=== PATIENT | female | born 1930 | race Caucasian/White ===

== ENCOUNTER 2018-03-24 09:51 | Emergency (ER) | payer MEDICARE, OTHER ==
[~2018-03-24] VITALS: Ht 152.4 cm; Wt 70.0 kg
[~2018-03-24 09:51] MED LIST: ADVA250A INH; ALBU0.086 INH; BACT2OIN TOP; CEPH500T PO; MELO15 PO; OXYB5TAB33 PO; PRED-1 PO; Z.0.OXYGEN INH; ZOLP5TAB3 PO
[2018-03-24 09:57] VITALS: BP 115/54; PULSE 95; RESP 20; TEMP 98.1; O2SAT 86
[2018-03-24 10:30] VITALS: BP 109/60; PULSE 88; RESP 16; O2SAT 89
[2018-03-24] MEDS ORDERED: PRED1 PO (10:30)
[2018-03-24] MEDS ORDERED: FURO1TAB62 PO (10:30)
[2018-03-24] MEDS ORDERED: OXYB5TAB8 PO (10:30)
[2018-03-24] MEDS ORDERED: UMEC1AER INH (10:30)
[2018-03-24] MEDS ORDERED: [UNRECOGNIZED DRUG - OTHER] NAS.CANULA (10:30)
--- NOTE | 2018-03-24 11:03 | PD ---
HPI Chief Complaint: Lump, Cyst, Hernia Time Seen by Provider: 11:01 Travel History International Travel<30 days: No Contact w/Intl Traveler<30days: No Traveled to known affect area: No History of Present Illness HPI Patient comes into the emergency department for breast lump on her left breast. It started after she tried to "pop" a pimple on her chest last . This is approximately 4-5 days ago and since then the lump has grown both in the redness as well as the size of it. Patient rates it at approximately 5 out of 10, not spontaneously draining much, denied any fever, nausea, vomiting. No alleviating or aggravating factors. Patient also denies associated factors such as chest pain, headache, visual changes, any other rashes throughout her body, neck pain, back pain, abdominal pain, diarrhea, runny nose sore throat or cough. States allergy to Tylenol causes itchiness Past medical history significant for cataract surgery, tonsillectomy, hypercholesterolemia, COPD, GERD, arthritis, bilateral knee replacements, depression, anxiety, previous shingles episode several years ago PFSH Past Medical History Arthritis: Yes Asthma: No Blood Disorders: No Anxiety: Yes Depression: Yes Cancer: Yes (SKIN) Cardiovascular Problems: No High Cholesterol: Yes COPD: Yes Diabetes: No Diminished Hearing: No Endocrine: No Gastrointestinal Disorders: Yes Glaucoma: No Genitourinary: Yes Hiatal Hernia: No Hypertension: No Immune Disorder: No Musculoskeletal: Yes Neurologic: No Reproductive: No Respiratory: Yes (copd, uses oxygen at home states at night) Thyroid Disease: No Tetanus Vaccination: Unknown Influenza Vaccination: No ?: Not Past Surgical History Abdominal Surgery: No Cardiac Surgery: No Eye Surgery: Yes (CATARACT SX ) Genitourinary Surgery: No Joint Replacement: Yes (BILATERAL KNEE REPLACEMENTS) Pacemaker: No Thoracic Surgery: No Tonsillectomy: Yes Other Surgery: Yes Social History Alcohol Use: No (QUIT ) Tobacco Use: Yes (STOPPED 1985) Substance Use: No Allergies-Medications (Allergen,Severity, Reaction): Coded Allergies: acetaminophen (Unverified Allergy, Severe, Itching, 03/24/18) Reported Meds & Prescriptions Reported Meds & Active Scripts Active Reported Anoro Ellipta Inh (Umeclidinium/Vilanterol) 62.5-25 Mcg/Act Aero 1 Puff INH DAILY Ditropan (Oxybutynin Chloride) 5 Mg Tab 5 Mg PO Q12HR Prednisone 1 Mg Tab 2 Mg PO DAILY [miscellaneous ] 2 Liter SUSY.CANULA DIRECTED Lasix (Furosemide) 20 Mg Tab 20 Mg PO BID Review of Systems General / Constitutional: No: Fever Eyes: No: Visual changes HENT: No: Headaches Cardiovascular: No: Chest Pain or Discomfort Respiratory: No: Shortness of Breath Gastrointestinal: No: Abdominal Pain Genitourinary: No: Dysuria Musculoskeletal: No: Pain Skin: Positive Rash, Positive Lumps Neurologic: No: Weakness Psychiatric: No: Depression Endocrine: No: Polydipsia Hematologic/Lymphatic: No: Easy Bruising Physical Exam Narrative GENERAL: SKIN: Warm and dry. Patient has erythema extending throughout most of her left breast however she has an area of fluctuance and induration is approximately 10 x 4 cm in size(please see EDUARDO's I&D procedure note for more details) HEAD: Atraumatic. Normocephalic. EYES: Pupils equal and round. No scleral icterus. No injection or drainage. ENT: No nasal bleeding or discharge. Mucous membranes pink and moist. NECK: Trachea midline. No JVD. CARDIOVASCULAR: Regular rate and rhythm. RESPIRATORY: No accessory muscle use. Clear to auscultation. Breath sounds equal bilaterally. GASTROINTESTINAL: Abdomen soft, non-tender, nondistended. MUSCULOSKELETAL: Extremities without clubbing, cyanosis, or edema. No obvious deformities. NEUROLOGICAL: Awake and alert. No obvious cranial nerve deficits. Motor grossly within normal limits. Five out of 5 muscle strength in the arms and legs. Normal speech. PSYCHIATRIC: Appropriate mood and affect; insight and judgment normal. Data Data Last Documented VS Vital Signs Date Time Temp Pulse Resp B/P (MAP) Pulse Ox O2 Delivery O2 Flow Rate FiO2 03/24/18 10:22 90 18 03/24/18 09:57 98.1 115/54 (74) 86 Orders Orders Lidocai-Epi 1%-1:100,000 Inj (Xylocaine- (03/24/18 11:30) Wound Culture And Gram Stain (03/24/18 11:38) Tramadol (Ultram) (03/24/18 11:45) Clindamycin Inj (Cleocin Inj) (03/24/18 12:00) MDM Medical Decision Making Medical Screen Exam Complete: Yes Emergency Medical Condition: Yes Medical Record Reviewed: Yes Differential Diagnosis Cellulitis versus lymphangitis versus abscess versus mastitis Narrative Course Please see the EDUARDO note for further information about the incision and drainage procedure. Patient will be given IM antibiotics Patient has been advised to follow-up with primary care for further evaluation after it heals to ensure that she does not have any type of atypical breast cancer or other malignancy present. Both the family members and the patient acknowledged that they will follow-up In the meantime the patient was advised that she will be given p.o. antibiotics as well as pain medication which do not contain Tylenol such as Ultram to help her with her pain control while the antibiotics continue to work. Culture sent and awaiting results Diagnosis Primary Impression: Breast abscess status post incision and drainage Patient Instructions: Abscess Incision and Drainage (DC), General Instructions Additional Instructions: You are highly recommended to follow-up with your primary care physician for further imaging to assess for the possibility of breast cancer. This is not simply on incision and drainage and then forget about it, your advised to follow -up and make sure he did not have breast cancer such as an inflammatory type. Scripts Sulfamethoxazole-Trimethoprim (Bactrim DS) 800-160 Mg Tab 1 TAB PO BID for Infection, #20 TAB 0 Refills Prov: Sumit Dean MD 03/24/[address] (Naproxen EC) 375 Mg Tabdr 375 MG PO BID, #12 TAB 0 Refills Prov: Sumit Dean MD 03/24/18 Tramadol (Ultram) 50 Mg Tab 50 MG PO Q6H Y for PAIN for 3 Days, #12 TAB 0 Refills Prov: Sumit Dean MD 03/24/18 Disposition: 01 DISCHARGE HOME Condition: Stable Sumit Dean MD Mar 24, 2018 11:03
[2018-03-24] MEDS ORDERED: LIDOCAINE 1%/EPINEPHrine 1:100,000 SOLN 20 ML VIAL INFIL ONE (11:30)
--- NOTE | 2018-03-24 11:39 | PD ---
Physical Exam Date Seen by Provider: Mar 24, 2018 Time Seen by Provider: 11:38 Narrative I was asked by Dr. Dean to incise and drain abscess to the patient's left medial breast. Please see his documentation for full history and physical. Data Data Last Documented VS Vital Signs Date Time Temp Pulse Resp B/P (MAP) Pulse Ox O2 Delivery O2 Flow Rate FiO2 03/24/18 10:22 90 18 03/24/18 09:57 98.1 115/54 (74) 86 Orders Orders Lidocai-Epi 1%-1:100,000 Inj (Xylocaine- (03/24/18 11:30) Wound Culture And Gram Stain (03/24/18 11:38) MDM Supervised Visit with EDUARDO: No Procedures Procedure Narrative INCISION AND DRAINAGE OF ABSCESS: The area was prepped and was sterilely draped. A subcutaneous wheal of 1% Xylocaine with epinephrine with a total number 5 mL was used to anesthetize the area. The area was properly anesthetized. A number 11 scalpel was used to make a 1 -cm incision across the area of the abscess. Cultures were obtained. The abscess was drained an irrigated with normal saline. Quarter inch iodoform packing was placed in the wound. Sterile dressing applied. Patient advised to have packing removed in two days. Joan Mahmood Mar 24, 2018 11:39
[2018-03-24] MEDS ORDERED: CLINDAMYCIN PHOS 300 MG/2 ML VIAL IM ONE (11:45)
[2018-03-24] MEDS ORDERED: traMADol HCL 50 MG TAB PO ONE (11:45)
[2018-03-24] MEDS ORDERED: CLINDAMYCIN PHOS 600 MG/4 ML VIAL IM ONE (12:00)
[2018-03-24] MEDS ORDERED: NAPR375T4 PO (12:34)
[2018-03-24] MEDS ORDERED: TRAM50 PO (12:34)
[2018-03-24] MEDS ORDERED: BACT800T5 PO (12:34)
[2018-03-24 13:08] VITALS: BP 119/58; RESP 16
== END 2018-03-24 14:07 | disposition home or self-care (01) ==
LOC: PHED 09:51
DX: N61.1 Abscess of the breast and nipple (principal); B96.89 Other specified bacterial agents as the cause of diseases classified elsewhere; E78.00 Pure hypercholesterolemia, unspecified; F32.9 Major depressive disorder, single episode, unspecified; J44.9 Chronic obstructive pulmonary disease, unspecified; M19.90 Unspecified osteoarthritis, unspecified site; Z85.828 Personal history of other malignant neoplasm of skin; Z99.81 Dependence on supplemental oxygen; Z96.653 Presence of artificial knee joint, bilateral; Z87.891 Personal history of nicotine dependence
CPT/HCPCS: 19020; 87070; 96372

== ENCOUNTER 2018-03-25 09:02 | Emergency (ER) | payer MEDICARE, OTHER ==
[~2018-03-25] VITALS: Ht 177.8 cm; Wt 69.0 kg
[~2018-03-25 09:02] MED LIST changes: -ADVA250A INH; -ALBU0.086 INH; -BACT2OIN TOP; +BACT800T5 PO; -CEPH500T PO; +FURO1TAB62 PO; -MELO15 PO; +NAPR375T4 PO; -OXYB5TAB33 PO; +OXYB5TAB8 PO; -PRED-1 PO; +PRED1 PO; +TRAM50 PO; +UMEC1AER INH; -Z.0.OXYGEN INH; -ZOLP5TAB3 PO; +[UNRECOGNIZED DRUG - OTHER] NAS.CANULA
[2018-03-25 09:09] VITALS: BP 145/64; PULSE 91; RESP 16; TEMP 97.3; O2SAT 85
--- NOTE | 2018-03-25 11:11 | PD ---
HPI . Wound drainage Chief Complaint: Skin Problem Time Seen by Provider: 10:14 Travel History International Travel<30 days: No Contact w/Intl Traveler<30days: No Traveled to known affect area: No History of Present Illness HPI This patient presents stating that her dressing has been soaked by drainage. She was seen here yesterday and had an abscess drained on the left breast. She states that the abscess and the redness/swelling is markedly improved. The reason why she is here is because she has soaked her dressing. PFSH Past Medical History Arthritis: Yes Asthma: No Blood Disorders: No Anxiety: Yes Depression: Yes Cancer: Yes (SKIN) Cardiovascular Problems: No High Cholesterol: Yes COPD: Yes Diabetes: No Diminished Hearing: No Endocrine: No Gastrointestinal Disorders: Yes GERD: Yes (OCCASIONALLY) Glaucoma: No Genitourinary: Yes Hiatal Hernia: No Hypertension: No Immune Disorder: No Musculoskeletal: Yes Neurologic: No Reproductive: No Respiratory: Yes (COPD) Thyroid Disease: No Tetanus Vaccination: < 5 Years Influenza Vaccination: Yes ?: Not Menopausal: Yes Past Surgical History Abdominal Surgery: No Cardiac Surgery: No Eye Surgery: Yes (CATARACT SX ) Genitourinary Surgery: No Joint Replacement: Yes (BILATERAL KNEE REPLACEMENTS) Pacemaker: No Thoracic Surgery: No Tonsillectomy: Yes Other Surgery: Yes Social History Alcohol Use: No (QUIT ) Tobacco Use: Yes (STOPPED 1985) Substance Use: No Allergies-Medications (Allergen,Severity, Reaction): Coded Allergies: acetaminophen (Unverified Allergy, Severe, Itching, 03/25/18) Reported Meds & Prescriptions Reported Meds & Active Scripts Active Bactrim DS (Sulfamethoxazole-Trimethoprim) 800-160 Mg Tab 1 Tab PO BID Naproxen EC (Naproxen) 375 Mg Tabdr 375 Mg PO BID Ultram (Tramadol HCl) 50 Mg Tab 50 Mg PO Q6H PRN 3 Days Reported Anoro Ellipta Inh (Umeclidinium/Vilanterol) 62.5-25 Mcg/Act Aero 1 Puff INH DAILY Ditropan (Oxybutynin Chloride) 5 Mg Tab 5 Mg PO Q12HR Prednisone 1 Mg Tab 2 Mg PO DAILY [miscellaneous ] 2 Liter SUSY.CANULA DIRECTED Lasix (Furosemide) 20 Mg Tab 20 Mg PO BID Review of Systems Except as stated in HPI: all other systems reviewed are Neg Physical Exam Narrative GENERAL: Awake and alert and in no acute distress. SKIN: Warm and dry. Normal color and turgor. She has erythema, warmth, swelling and tenderness to the medial aspect of the left breast. There is an I& D site with packing in place. It is draining serosanguineous fluid. HEAD: Normocephalic/atraumatic. EYES: Pupils are equal. Extraocular movements are intact. NECK: Normal range of motion. Supple. CARDIOVASCULAR: Regular rate and rhythm. RESPIRATORY: Nonlabored respirations. Normal sats. MUSCULOSKELETAL: Atraumatic. Normal muscle tone. NEUROLOGICAL: A and O 3. Nonfocal. PSYCHIATRIC: Appropriate mood and affect. Data Data Last Documented VS Vital Signs Date Time Temp Pulse Resp B/P (MAP) Pulse Ox O2 Delivery O2 Flow Rate FiO2 03/25/18 09:09 97.3 91 16 145/64 (91) 85 Orders Orders Wound Care (03/25/18 11:04) [facility] Medical Decision Making Medical Screen Exam Complete: Yes Emergency Medical Condition: Yes Differential Diagnosis My differential diagnosis includes but is not limited to localized wound infection, cellulitis, abscess Narrative Course This patient presents for recheck. She was seen here yesterday for cellulitis and abscess of the left breast. The abscess was I&D. She states that the abscess and cellulitis are markedly improved. She is here because she has soaked her dressing. Her dressing will be replaced. She will then be discharged home with instructions to return as previously scheduled. Diagnosis Primary Impression: Abscess re-check Disposition: DISCHARGE HOME Condition: Stable Genevieve Choi MD Mar 25, 2018 11:11
[2018-03-25 11:17] VITALS: BP 118/61; PULSE 76; RESP 18; O2SAT 85
[2018-03-26] MEDS ORDERED: CEPH-460 PO (12:42)
== END 2018-03-25 11:34 | disposition home or self-care (01) ==
LOC: PHED 09:02
DX: N61.1 Abscess of the breast and nipple (principal)
CPT/HCPCS: 99281

== ENCOUNTER 2018-03-26 08:54 | Emergency (ER) | payer MEDICARE, OTHER ==
[~2018-03-26] VITALS: Ht 152.4 cm; Wt 70.0 kg
[~2018-03-26 08:54] MED LIST changes: +ADVA250A INH; +ALBU0.086 INH; +BACT2OIN TOP; +CEPH500T PO; +MELO15 PO; +OXYB5TAB33 PO; +PRED-1 PO; +Z.0.OXYGEN INH; +ZOLP5TAB3 PO
[2018-03-26 08:56] VITALS: BP 119/59; PULSE 84; RESP 18; TEMP 97.9; O2SAT 83
--- NOTE | 2018-03-26 09:35 | PD ---
HPI Chief Complaint: Skin Problem Time Seen by Provider: 09:04 Travel History International Travel<30 days: No Contact w/Intl Traveler<30days: No Traveled to known affect area: No History of Present Illness HPI 87-year-old female with history of COPD, oxygen dependent at home, presents emergency department for reevaluation of a left breast abscess. Patient was seen and evaluated 2 days ago for this. I&D was complete at that time, patient was started on Bactrim, and packing was placed. She returned yesterday due to copious amount of drainage. The wound was redressed and she was discharged to follow-up today. Patient returns today. She is uncertain if she has noticed any significant improvement. She tells me she is taking her Bactrim as prescribed. She reports the area is tender and continues to drain. She is having difficulty keeping a dressing on. Her primary care providers Dr. Martini who she has not yet followed up with in regards to this. She believes she has had fever at times but is uncertain. She has no other symptoms to report. PFSH Past Medical History Arthritis: Yes Asthma: No Blood Disorders: No Anxiety: Yes Depression: Yes Cancer: Yes (SKIN) Cardiovascular Problems: No High Cholesterol: Yes COPD: Yes Diabetes: No Diminished Hearing: No Endocrine: No Gastrointestinal Disorders: Yes GERD: Yes (OCCASIONALLY) Glaucoma: No Genitourinary: Yes Hiatal Hernia: No Hypertension: No Immune Disorder: No Musculoskeletal: Yes Neurologic: No Reproductive: No Respiratory: Yes (COPD) Thyroid Disease: No Menopausal: Yes Past Surgical History Abdominal Surgery: No Cardiac Surgery: No Eye Surgery: Yes (CATARACT SX ) Genitourinary Surgery: No Joint Replacement: Yes (BILATERAL KNEE REPLACEMENTS) Pacemaker: No Thoracic Surgery: No Tonsillectomy: Yes Other Surgery: Yes Social History Alcohol Use: No (QUIT ) Tobacco Use: Yes (STOPPED 1985) Substance Use: No Allergies-Medications (Allergen,Severity, Reaction): Coded Allergies: acetaminophen (Unverified Allergy, Severe, Itching, 03/26/18) Reported Meds & Prescriptions Reported Meds & Active Scripts Active Bactrim DS (Sulfamethoxazole-Trimethoprim) 800-160 Mg Tab 1 Tab PO BID Naproxen EC (Naproxen) 375 Mg Tabdr 375 Mg PO BID Ultram (Tramadol HCl) 50 Mg Tab 50 Mg PO Q6H PRN 3 Days Reported Anoro Ellipta Inh (Umeclidinium/Vilanterol) 62.5-25 Mcg/Act Aero 1 Puff INH DAILY Ditropan (Oxybutynin Chloride) 5 Mg Tab 5 Mg PO Q12HR Prednisone 1 Mg Tab 2 Mg PO DAILY [miscellaneous ] 2 Liter SUSY.CANULA DIRECTED Lasix (Furosemide) 20 Mg Tab 20 Mg PO BID Review of Systems Except as stated in HPI: all other systems reviewed are Neg Physical Exam Narrative GENERAL: Well-nourished elderly female patient, in no acute distress SKIN: Focused skin assessment warm/dry. 6 cm in diameter area of induration on the medial left breast near the sternum. Erythema extends slightly to the breast approximately 10 cm x 3 cm. HEAD: Atraumatic. Normocephalic. EYES: Pupils equal and round. No scleral icterus. No injection or drainage. ENT: No nasal bleeding or discharge. Mucous membranes pink and moist. NECK: Trachea midline. No JVD. CARDIOVASCULAR: Regular rate and rhythm. No murmur appreciated. RESPIRATORY: No accessory muscle use. Clear to auscultation. Breath sounds equal bilaterally. GASTROINTESTINAL: Abdomen soft, non-tender, nondistended. Hepatic and splenic margins not palpable. MUSCULOSKELETAL: No obvious deformities. No clubbing. No cyanosis. No edema. NEUROLOGICAL: Awake and alert. No obvious cranial nerve deficits. Motor grossly within normal limits. Normal speech. PSYCHIATRIC: Appropriate mood and affect; insight and judgment normal. Data Data Last Documented VS Vital Signs Date Time Temp Pulse Resp B/P (MAP) Pulse Ox O2 Delivery O2 Flow Rate FiO2 03/26/18 11:31 78 20 101/46 (64) 92 Nasal Cannula 2.00 03/26/18 08:56 97.9 Orders Orders Us Breast Unilateral (03/26/18 ) Iv Access Insert/Monitor (03/26/18 09:34) Complete Blood Count With Diff (03/26/18 09:34) Basic Metabolic Panel (Bmp) (03/26/18 09:34) Clindamycin 600 Mg/Ns Premix (Cleocin 60 (03/26/18 10:45) Ed Discharge Order (03/26/18 12:33) Labs Laboratory Tests Test 03/26/18 09:40 White Blood Count 7.4 TH/MM3 Red Blood Count 4.42 MIL/MM3 Hemoglobin 13.4 GM/DL Hematocrit 40.0 % Mean Corpuscular Volume 90.6 FL Mean Corpuscular Hemoglobin 30.3 PG Mean Corpuscular Hemoglobin Concent 33.4 % Red Cell Distribution Width 13.9 % Platelet Count 238 TH/MM3 Mean Platelet Volume 7.9 FL Neutrophils (%) (Auto) 80.8 % Lymphocytes (%) (Auto) 11.5 % Monocytes (%) (Auto) 3.8 % Eosinophils (%) (Auto) 3.4 % Basophils (%) (Auto) 0.5 % Neutrophils # (Auto) 5.9 TH/MM3 Lymphocytes # (Auto) 0.9 TH/MM3 Monocytes # (Auto) 0.3 TH/MM3 Eosinophils # (Auto) 0.3 TH/MM3 Basophils # (Auto) 0.0 TH/MM3 CBC Comment DIFF FINAL Differential Comment Blood Urea Nitrogen 10 MG/DL Creatinine 1.20 MG/DL Random Glucose 93 MG/DL Calcium Level 8.7 MG/DL Sodium Level 139 MEQ/L Potassium Level 3.5 MEQ/L Chloride Level 101 MEQ/L Carbon Dioxide Level 29.1 MEQ/L Anion Gap 9 MEQ/L Estimat Glomerular Filtration Rate 42 ML/MIN MDM Medical Decision Making Medical Screen Exam Complete: Yes Emergency Medical Condition: Yes Medical Record Reviewed: Yes Differential Diagnosis Cellulitis versus abscess versus erysipelas versus neoplasm Narrative Course 87-year-old female presents emergency department for evaluation of abscess to her left breast. Patient has been for the last 2 days. She appears well but is unable to tell for certain of the area is getting better. She states she has at times had subjective fever. I discussed the patient my attending physician who is also assessed the patient. Laboratory Tests Test 03/26/18 09:40 White Blood Count 7.4 TH/MM3 Red Blood Count 4.42 MIL/MM3 Hemoglobin 13.4 GM/DL Hematocrit 40.0 % Mean Corpuscular Volume 90.6 FL Mean Corpuscular Hemoglobin 30.3 PG Mean Corpuscular Hemoglobin Concent 33.4 % Red Cell Distribution Width 13.9 % Platelet Count 238 TH/MM3 Mean Platelet Volume 7.9 FL Neutrophils (%) (Auto) 80.8 % Lymphocytes (%) (Auto) 11.5 % Monocytes (%) (Auto) 3.8 % Eosinophils (%) (Auto) 3.4 % Basophils (%) (Auto) 0.5 % Neutrophils # (Auto) 5.9 TH/MM3 Lymphocytes # (Auto) 0.9 TH/MM3 Monocytes # (Auto) 0.3 TH/MM3 Eosinophils # (Auto) 0.3 TH/MM3 Basophils # (Auto) 0.0 TH/MM3 CBC Comment DIFF FINAL Differential Comment Blood Urea Nitrogen 10 MG/DL Creatinine 1.20 MG/DL Random Glucose 93 MG/DL Calcium Level 8.7 MG/DL Sodium Level 139 MEQ/L Potassium Level 3.5 MEQ/L Chloride Level 101 MEQ/L Carbon Dioxide Level 29.1 MEQ/L Anion Gap 9 MEQ/L Estimat Glomerular Filtration Rate 42 ML/MIN Last Impressions Breast Ultrasound 03/26/18 0000 Signed Impressions: CONCLUSION: 1. Ill-defined hypoechoic complex fluid collection consistent with the history of abscess. 2. Hyperechoic linear structures which may represent residual packing material other foreign body. Findings are discussed with the patient. Packing is removed and the wound is repacked. Patient is counseled on care and encouraged to return in 48 hours for packing removal. She agrees to return immediately with any acute worsening symptoms. Diagnosis Primary Impression: Breast abscess of female Referrals: Primary Care Physician Patient Instructions: Abscess Follow-up (ED), General Instructions Additional Instructions: Continue antibiotic as already prescribed Start Keflex tomorrow morning and take it until it is all gone along with your other antibiotic Follow-up with your primary care provider Packing is to be removed in 2 days. You can do this on your own or here in the emergency department or at your primary care provider's office Return immediately with acute worsening symptoms Med/Other Pt SpecificInfo: Prescription(s) given Scripts Cephalexin (Keflex) 500 Mg Cap 500 MG PO Q6H for Infection for 5 Days, #20 CAP 0 Refills Prov: Harmony Green 03/26/18 Disposition: 01 DISCHARGE HOME Condition: Stable Harmony Green Mar 26, 2018 09:35
[2018-03-26 09:47] LABS: AUTOMATED NEUTROPHIL # 5.9 TH/MM3 (1.8-7.7); BASOPHIL % 0.5 % (0.0-2.0); EOSINOPHIL # 0.3 TH/MM3 (0-0.4); EOSINOPHIL % 3.4 % (0.0-4.0); HEMOGLOBIN 13.4 GM/DL (11.6-15.3); LYMPH % 11.5 % (9.0-44.0); LYMPHOCYTE # 0.9 TH/MM3 (1.0-4.8); MEAN CELL VOLUME 90.6 FL (80.0-100.0); MEAN CORPUSCULAR HEMOGLOBIN 30.3 PG (27.0-34.0); MEAN CORPUSCULAR HGB CONC 33.4 % (32.0-36.0); MEAN PLATELET VOLUME 7.9 FL (7.0-11.0); MONO % 3.8 % (0.0-8.0); MONOCYTE # 0.3 TH/MM3 (0-0.9); NEUT % 80.8 % (16.0-70.0); PLATELET COUNT 238 TH/MM3 (150-450); RED BLOOD COUNT 4.42 MIL/MM3 (4.00-5.30); RED CELL DISTRIBUTION WIDTH 13.9 % (11.6-17.2); WHITE BLOOD COUNT 7.4 TH/MM3 (4.0-11.0)
[2018-03-26 10:22] LABS: CALCIUM 8.7 MG/DL (8.5-10.1)
[2018-03-26 10:23] LABS: BICARBONATE 29.1 MEQ/L (21.0-32.0)
[2018-03-26 10:26] LABS: CREATININE 1.2 MG/DL (0.50-1.00)
[2018-03-26] MEDS ORDERED: CLINDAMYCIN 600 MG/NS PREMIX 50 ML IV ONE (10:45)
[2018-03-26 11:31] VITALS: BP 101/46; PULSE 78; RESP 20; O2SAT 92
--- NOTE | 2018-03-26 12:27 | RADRPT ---
EXAM DATE: 03/26/2018 12:20 PM EDT AGE/SEX: 87 years / Female INDICATIONS: History of left breast abscess with drainage and history of placement of packing materi al which was removed. CLINICAL DATA: This is the patient's initial encounter. Patient reports that signs and symptoms have been present for 1 week and indicates a pain score of 4/10. MEDICAL/SURGICAL HISTORY: Hypercholesterolemia. Chronic obstructive pulmonary disease. Dyspnea . Arthritis. Depression. Anxiety. Tonsillectomy. Bilateral cataract surgery. Bilateral knee replacem ent. COMPARISON: No prior exams available for comparison. TECHNIQUE: Real-time ultrasound examination was performed using a high-frequency transducer. Conven tional and compound scanning techniques were used. FINDINGS: A targeted ultrasound study was performed and demonstrated a complex this measures up to approximatel y 2 x 1 cm in greatest diameter and contains hypoechoic fluid areas as well as linear hyperechoic str uctures which may represent packing material or other foreign body. There is surrounding increased co dayanara flow. Masslike structure at the 11:00 position 15 cm from the nipple. CONCLUSION: 1. Ill-defined hypoechoic complex fluid collection consistent with the history of abscess. 2. Hyperechoic linear structures which may represent residual packing material other foreign body. Electronically signed by: Prem Davis MD 03/26/2018 12:25 PM EDT
[2018-03-26] MEDS ORDERED: CEPH-460 PO (12:42)
== END 2018-03-26 13:21 | disposition home or self-care (01) ==
LOC: PHEFT 08:54
DX: N61.1 Abscess of the breast and nipple (principal); J44.9 Chronic obstructive pulmonary disease, unspecified; E78.00 Pure hypercholesterolemia, unspecified; K21.9 Gastro-esophageal reflux disease without esophagitis; Z99.81 Dependence on supplemental oxygen; Z87.19 Personal history of other diseases of the digestive system; Z87.448 Personal history of other diseases of urinary system; Z87.39 Personal history of other diseases of the musculoskeletal system and connective tissue; Z86.59 Personal history of other mental and behavioral disorders; Z85.828 Personal history of other malignant neoplasm of skin
CPT/HCPCS: 76642; 80048; 85025; 96365